=== PATIENT | female | born 1965 | race Caucasian/White ===

== ENCOUNTER → 2018-07-17 | Outpatient (CLI) | payer OTHER | LOC: HYPER 07-10 09:49 | DX: I89.0 Lymphedema, not elsewhere classified (principal); D50.9 Iron deficiency anemia, unspecified; I73.9 Peripheral vascular disease, unspecified; I87.2 Venous insufficiency (chronic) (peripheral); J45.909 Unspecified asthma, uncomplicated; M06.9 Rheumatoid arthritis, unspecified; F41.9 Anxiety disorder, unspecified; Z95.820 Peripheral vascular angioplasty status with implants and grafts ==

== ENCOUNTER → 2018-08-19 | Outpatient (CLI) | payer OTHER | LOC: HYPER 06:55 | DX: I89.0 Lymphedema, not elsewhere classified (principal); I73.9 Peripheral vascular disease, unspecified; I87.2 Venous insufficiency (chronic) (peripheral); L84 Corns and callosities; M79.7 Fibromyalgia; M06.9 Rheumatoid arthritis, unspecified; D50.9 Iron deficiency anemia, unspecified; M10.9 Gout, unspecified; G47.30 Sleep apnea, unspecified; J45.909 Unspecified asthma, uncomplicated; F41.9 Anxiety disorder, unspecified; F32.9 Major depressive disorder, single episode, unspecified ==

== ENCOUNTER → 2018-09-24 | Outpatient (CLI) | payer OTHER | LOC: HYPER 09-16 06:56 | DX: I89.0 Lymphedema, not elsewhere classified (principal); I73.9 Peripheral vascular disease, unspecified; I87.2 Venous insufficiency (chronic) (peripheral); D50.9 Iron deficiency anemia, unspecified; G47.30 Sleep apnea, unspecified; J45.909 Unspecified asthma, uncomplicated; K21.9 Gastro-esophageal reflux disease without esophagitis; M06.9 Rheumatoid arthritis, unspecified; M10.9 Gout, unspecified; F32.9 Major depressive disorder, single episode, unspecified; F41.9 Anxiety disorder, unspecified; Z95.820 Peripheral vascular angioplasty status with implants and grafts ==

== ENCOUNTER → 2019-08-25 | Outpatient (CLI) | payer OTHER | LOC: CAT 09:36 | DX: Z13.6 Encounter for screening for cardiovascular disorders (principal); I25.10 Atherosclerotic heart disease of native coronary artery without angina pectoris; E78.00 Pure hypercholesterolemia, unspecified ==

== ENCOUNTER → 2021-05-10 | Outpatient (CLI) | payer OTHER | LOC: HYPER 07:36 | PROVIDERS: ATTEND Specialist | DX: I87.323 Chronic venous hypertension (idiopathic) with inflammation of bilateral lower extremity (principal); I89.0 Lymphedema, not elsewhere classified; R60.0 Localized edema; D50.9 Iron deficiency anemia, unspecified; G47.30 Sleep apnea, unspecified; I73.9 Peripheral vascular disease, unspecified; I25.10 Atherosclerotic heart disease of native coronary artery without angina pectoris; J45.909 Unspecified asthma, uncomplicated; K21.9 Gastro-esophageal reflux disease without esophagitis; M79.7 Fibromyalgia; M06.9 Rheumatoid arthritis, unspecified; M10.9 Gout, unspecified; F32.9 Major depressive disorder, single episode, unspecified; F41.9 Anxiety disorder, unspecified; F17.200 Nicotine dependence, unspecified, uncomplicated; Z79.82 Long term (current) use of aspirin ==

== ENCOUNTER → 2021-05-17 | Outpatient (CLI) | payer OTHER | LOC: HYPER 08:21 | PROVIDERS: ATTEND Emergency Medicine | DX: I89.0 Lymphedema, not elsewhere classified (principal); I83.90 Asymptomatic varicose veins of unspecified lower extremity; R60.0 Localized edema; I73.9 Peripheral vascular disease, unspecified; M79.7 Fibromyalgia; M06.9 Rheumatoid arthritis, unspecified; J45.909 Unspecified asthma, uncomplicated; D50.9 Iron deficiency anemia, unspecified; M10.9 Gout, unspecified; G47.30 Sleep apnea, unspecified; F41.9 Anxiety disorder, unspecified; F32.9 Major depressive disorder, single episode, unspecified; F17.200 Nicotine dependence, unspecified, uncomplicated; Z79.82 Long term (current) use of aspirin; Z79.899 Other long term (current) drug therapy ==

== ENCOUNTER → 2021-06-14 | Outpatient (CLI) | payer OTHER | LOC: HYPER 08:41 | PROVIDERS: ATTEND Emergency Medicine | DX: I89.0 Lymphedema, not elsewhere classified (principal); I87.2 Venous insufficiency (chronic) (peripheral); I73.9 Peripheral vascular disease, unspecified; R60.0 Localized edema; M79.7 Fibromyalgia; M06.9 Rheumatoid arthritis, unspecified; J45.909 Unspecified asthma, uncomplicated; D50.9 Iron deficiency anemia, unspecified; I83.90 Asymptomatic varicose veins of unspecified lower extremity; G47.30 Sleep apnea, unspecified; F41.9 Anxiety disorder, unspecified; F32.9 Major depressive disorder, single episode, unspecified; F17.200 Nicotine dependence, unspecified, uncomplicated; Z79.82 Long term (current) use of aspirin; Z79.899 Other long term (current) drug therapy ==

== ENCOUNTER → 2021-08-31 | Outpatient (CLI) | payer OTHER | LOC: HYPER 09:50 | PROVIDERS: ATTEND Emergency Medicine | DX: I89.0 Lymphedema, not elsewhere classified (principal); I87.2 Venous insufficiency (chronic) (peripheral); I73.9 Peripheral vascular disease, unspecified; R60.0 Localized edema; M79.7 Fibromyalgia; M06.9 Rheumatoid arthritis, unspecified; M10.9 Gout, unspecified; J45.909 Unspecified asthma, uncomplicated; D50.9 Iron deficiency anemia, unspecified; I83.90 Asymptomatic varicose veins of unspecified lower extremity; G47.30 Sleep apnea, unspecified; K21.9 Gastro-esophageal reflux disease without esophagitis; F41.9 Anxiety disorder, unspecified; F32.9 Major depressive disorder, single episode, unspecified; F17.200 Nicotine dependence, unspecified, uncomplicated; Z79.82 Long term (current) use of aspirin ==